=== PATIENT | female | born 1930 | race Caucasian/White ===

== ENCOUNTER 2017-07-10 04:01 | Emergency (ER) | payer MEDICARE ==
[~2017-07-10] VITALS: Ht 162.6 cm; Wt 55.0 kg
[~2017-07-10 04:01] MED LIST: AMLO5TAB PO; AMOX-580 PO; CALC500T11 PO; CYAN-19 PO; GABA-530 PO; IBUP-2264 PO; IPRA3AMP IH; LORA0.5T PO; MIRT15TA PO; NYST30CR2 TP; OLAN2.5T3 PO; PRED10TA PO
[2017-07-10 04:36] LABS: BASOPHILS % (AUTO) 0.3 % (0-1); EOSINOPHILS # (AUTO) 0.2 X10'3 (0-0.9); EOSINOPHILS % (AUTO) 2.9 % (0-6); HEMATOCRIT 38.7 % (35.0-45.0); HEMOGLOBIN 13.4 g/dl (12.0-16.0); LYMPHOCYTES # (AUTO) 0.8 X10'3 (1.1-4.8); LYMPHOCYTES % (AUTO) 12.5 % (21-51); MEAN CORPUSCULAR HGB CONC 34.7 % (33.0-36.5); MEAN CORPUSCULAR VOLUME 86.3 FL (78-98); MEAN PLATELET VOLUME 7.4 FL (7.4-10.4); MONOCYTES # (AUTO) 0.7 X10'3 (0-0.9); MONOCYTES % (AUTO) 11.5 % (2-12); NEUTROPHILS # (AUTO) 4.4 X10'3 (1.8-7.7); NEUTROPHILS % (AUTO) 72.8 % (42-75); PLATELET COUNT 258 X10'3 (140-440); RED BLOOD COUNT 4.49 X10'6 (4.20-5.60); RED CELL DISTRIBUTION WIDTH 14.4 % (11.5-14.5)
[2017-07-10 04:48] LABS: ALANINE AMINOTRANSFERASE 17 U/L (12-78); ALBUMIN 3.4 G/DL (3.4-5.0); ALKALINE PHOSPHATASE 97 IU/L (46-116); ANION GAP 3 (8-16); ASPARTATE AMINO TRANSFERASE 16 U/L (10-37); BILIRUBIN,TOTAL 0.4 MG/DL (0.1-1.0); BLOOD UREA NITROGEN 19 MG/DL (7-18); BUN/CREATININE RATIO 27.1 (6.6-38.0); CALCIUM 8.8 MG/DL (8.5-10.1); CHLORIDE 107 MMOL/L (99-107); GLUCOSE 97 MG/DL (70-104); MAGNESIUM 1.8 MG/DL (1.5-2.4); POTASSIUM 4.1 MMOL/L (3.5-5.1); SODIUM 142 MMOL/L (135-145); TOTAL CARBON DIOXIDE 31.6 MMOL/L (24-32); TOTAL PROTEIN 6.9 G/DL (6.4-8.2); eGFR 79 ML/MIN
[2017-07-10 05:53] VITALS: BP 125/60
== END 2017-07-10 06:23 | disposition home or self-care (01) ==
LOC: ER 04:02
DX: S09.90XA Unspecified injury of head, initial encounter (principal); F32.9 Major depressive disorder, single episode, unspecified; F03.90 Unspecified dementia, unspecified severity, without behavioral disturbance, psychotic disturbance, mood disturbance, and anxiety; F29 Unspecified psychosis not due to a substance or known physiological condition; I65.23 Occlusion and stenosis of bilateral carotid arteries; W18.30XA Fall on same level, unspecified, initial encounter; Y93.89 Activity, other specified; Y92.89 Other specified places as the place of occurrence of the external cause; Y99.8 Other external cause status
CPT/HCPCS: 36415; 70450; 71045; 80053; 83735; 85025; 99285

== ENCOUNTER 2017-10-25 09:44 | Inpatient (IN) | payer MEDICARE ==
[~2017-10-25] VITALS: Ht 165.1 cm; Wt 57.7 kg
[2017-10-25] MEDS ORDERED: normal saline 1000ML IV soln IVB ONE (10:50)
[2017-10-25 11:15] LABS: BASOPHILS % (AUTO) 0.1 % (0-1); EOSINOPHILS % (AUTO) 0 % (0-6); HEMATOCRIT 35.1 % (35.0-45.0); HEMOGLOBIN 11.9 g/dl (12.0-16.0); LYMPHOCYTES # (AUTO) 0.4 X10'3 (1.1-4.8); MEAN CORPUSCULAR HEMOGLOBIN 30.1 PG (27.0-31.0); MEAN CORPUSCULAR HGB CONC 33.8 % (33.0-36.5); MEAN PLATELET VOLUME 7.7 FL (7.4-10.4); MONOCYTES # (AUTO) 0.8 X10'3 (0-0.9); MONOCYTES % (AUTO) 12.5 % (2-12); NEUTROPHILS % (AUTO) 81.4 % (42-75); PLATELET COUNT 337 X10'3 (140-440); RED BLOOD COUNT 3.95 X10'6 (4.20-5.60); RED CELL DISTRIBUTION WIDTH 14.1 % (11.5-14.5); WHITE BLOOD COUNT 6.1 X10'3 (4.5-11.0)
[2017-10-25 11:25] LABS: PARTIAL THROMBOPLASTIN TIME 30 SECONDS (22-32); PROTHROMBIN TIME 10.2 SECONDS (9.0-12.0)
[2017-10-25 11:39] LABS: ALANINE AMINOTRANSFERASE 30 U/L (12-78); ALBUMIN 2.8 G/DL (3.4-5.0); ALBUMIN/GLOBULIN RATIO 0.5 (1.1-1.5); ALKALINE PHOSPHATASE 100 IU/L (46-116); ANION GAP 5 (8-16); ASPARTATE AMINO TRANSFERASE 28 U/L (10-37); BILIRUBIN,TOTAL 0.8 MG/DL (0.1-1.0); BLOOD UREA NITROGEN 26 MG/DL (7-18); BUN/CREATININE RATIO 25.5 (6.6-38.0); CALCIUM 8.9 MG/DL (8.5-10.1); CHLORIDE 101 MMOL/L (99-107); CREATININE 1.02 MG/DL (0.40-0.90); GLUCOSE 327 MG/DL (70-104); MAGNESIUM 2.5 MG/DL (1.5-2.4); PHOSPHORUS 3.6 MG/DL (2.3-4.5); POTASSIUM 4.2 MMOL/L (3.5-5.1); SODIUM 138 MMOL/L (135-145); TOTAL CARBON DIOXIDE 31.8 MMOL/L (24-32); TOTAL PROTEIN 8.1 G/DL (6.4-8.2); eGFR 51 ML/MIN
[2017-10-25] MEDS ORDERED: benzonatate 100mg capsule PO ONE (12:25)
[2017-10-25] MEDS ORDERED: albuterol 2.5 MG/3 ML nebule NEB ONE (12:25)
[2017-10-25] MEDS ORDERED: azithromycin/NS 500mg/250ml 250 ML IV ONE (12:30)
[2017-10-25] MEDS ORDERED: CefTRIAXone 2gm/D5W 50ml 50 ML IV ONE (12:30)
[2017-10-25] MEDS ORDERED: ondansetron/PF 4mg/2ml inj IV PRN (12:45)
[2017-10-25] MEDS ORDERED: mag hydrox/Alum hydrox/simeth 30ml oral suspension PO PRN (12:45)
[2017-10-25] MEDS ORDERED: magnesium hydroxide 30ml (MOM) UD suspension PO PRN (12:45)
[2017-10-25] MEDS ORDERED: acetaminophen 325mg tablet PO PRN (12:45)
[2017-10-25 13:51] LABS: CLARITY,URINE CLOUDY (Clear); COLOR,URINE YELLOW (Yellow); GLUCOSE, URINE >=1000 mg/dl (Neg); KETONES,URINE NEGATIVE (Neg); LEUKOCYTE ESTERASE ,URINE SMALL (Neg); NITRITES, URINE POSITIVE (Neg); OCCULT BLOOD,URINE SMALL (Neg); PH,URINE 5.5 (4.8-8.0); PROTEIN,URINE 30 mg/dl (Neg)
[2017-10-25 13:53] LABS: UA COLLECTION TYPE STRAIGHT CATH
[2017-10-25 13:58] LABS: SQUAMOUS EPITHELIAL CELL,UR MODERATE /LPF (FEW); TRANSITIONAL EPI CELLS,URINE MODERATE /HPF
[2017-10-25 14:00] LABS: BACTERIA,URINE 2+ /HPF (Neg); WBC CLUMPS,URINE MANY /HPF (NEGATIVE)
[2017-10-25 14:01] LABS: RBC,URINE 0-2 /HPF (0-2); WBC,URINE 50-100 /HPF (0-4)
[2017-10-25] MEDS ORDERED: MESSAGE TO PHARMACY PO ONE (17:20)
[2017-10-25] MEDS ORDERED: dextrose 50%-water 50ml dispensing syringe IV PRN ×2 (17:20)
[2017-10-25] MEDS ORDERED: glucagon, human recombinant 1mg kit SUBCUT PRN (17:20)
[2017-10-25] MEDS ORDERED: acetaminophen 650mg rectal suppository RC ONE (17:20)
[2017-10-25] MEDS ORDERED: enoxaparin 30mg/0.3ml syringe SUBCUT ONE (17:35)
[2017-10-25 17:42] LABS: HEMOGLOBIN A1C 6.2 % (4.5-6.2)
[2017-10-25 18:00] VITALS: BP 149/76
[2017-10-25 19:00] VITALS: BP 145/64
[2017-10-25] MEDS ORDERED: normal saline 1000ml 1,000 ML IV SCH (19:15)
[2017-10-25] MEDS ORDERED: acetaminophen 650mg rectal suppository RC PRN (19:15)
[2017-10-25] MEDS: insulin glargine (Lantus) pen - multi-dose SQ SCH (21:00)
[2017-10-25] MEDS: CefTRIAXone 2gm/D5W 50ml 50 ML IV SCH (21:04)
[2017-10-26] VITALS: BP 142/68
[2017-10-26 06:09] LABS: HEMOGLOBIN 10.8 g/dl (12.0-16.0); MEAN CORPUSCULAR HEMOGLOBIN 29.9 PG (27.0-31.0); MEAN CORPUSCULAR HGB CONC 33.7 % (33.0-36.5); MEAN CORPUSCULAR VOLUME 88.8 FL (78-98); MEAN PLATELET VOLUME 8.1 FL (7.4-10.4); PLATELET COUNT 348 X10'3 (140-440); RED BLOOD COUNT 3.61 X10'6 (4.20-5.60); RED CELL DISTRIBUTION WIDTH 14.1 % (11.5-14.5); WHITE BLOOD COUNT 8.1 X10'3 (4.5-11.0)
[2017-10-26 06:41] LABS: PLATELET ESTIMATE NORMAL; TOTAL CELLS COUNTED 100
[2017-10-26 07:00] VITALS: BP 121/52
[2017-10-26 07:11] LABS: ALANINE AMINOTRANSFERASE 30 U/L (12-78); ALBUMIN 2.3 G/DL (3.4-5.0); ALBUMIN/GLOBULIN RATIO 0.5 (1.1-1.5); ALKALINE PHOSPHATASE 93 IU/L (46-116); ANION GAP 10 (8-16); ASPARTATE AMINO TRANSFERASE 28 U/L (10-37); BILIRUBIN,TOTAL 0.5 MG/DL (0.1-1.0); BLOOD UREA NITROGEN 20 MG/DL (7-18); CALCIUM 8.7 MG/DL (8.5-10.1); CHLORIDE 107 MMOL/L (99-107); CREATININE 0.69 MG/DL (0.40-0.90); GLUCOSE 151 MG/DL (70-104); POTASSIUM 4.3 MMOL/L (3.5-5.1); SODIUM 147 MMOL/L (135-145); TOTAL CARBON DIOXIDE 30.3 MMOL/L (24-32); TOTAL PROTEIN 6.9 G/DL (6.4-8.2); eGFR 80 ML/MIN
[2017-10-26] MEDS: CefTRIAXone 2gm/D5W 50ml 50 ML IV SCH ×2 (07:29→19:42)
[2017-10-26] MEDS: azithromycin/NS 500mg/250ml 250 ML IV SCH (08:41)
[2017-10-26 12:32] VITALS: BP 143/54
[2017-10-26] MEDS: dextrose 5%-1/2 normal saline 1,000 ML IV SCH (12:38)
[2017-10-26] MEDS ORDERED: AMLO5TAB PO (13:04)
[2017-10-26] MEDS ORDERED: LORA0.5T PO (13:13)
[2017-10-26] MEDS ORDERED: PRED10TA PO (13:13)
[2017-10-26] MEDS ORDERED: OLAN2.5T3 PO (13:13)
[2017-10-26] MEDS ORDERED: GABA-530 PO ×2 (13:13→13:41)
[2017-10-26] MEDS ORDERED: CALC500T11 PO ×2 (13:13→13:48)
[2017-10-26] MEDS ORDERED: CYAN-19 PO (13:13)
[2017-10-26] MEDS ORDERED: MIRT15TA PO (13:13)
[2017-10-26] MEDS ORDERED: AMOX-580 PO (13:13)
[2017-10-26] MEDS ORDERED: NYST30CR2 TP (13:13)
[2017-10-26] MEDS ORDERED: IBUP-2264 PO (13:13)
[2017-10-26] MEDS ORDERED: IPRA3AMP IH ×2 (13:13→13:48)
[2017-10-26] MEDS ORDERED: MYC15CR TOP (13:41)
[2017-10-26] MEDS ORDERED: MULT1TAB74 PO (13:48)
[2017-10-26] MEDS ORDERED: IBUP-24 PO (13:48)
[2017-10-26] MEDS ORDERED: LORA-269 PO (13:48)
[2017-10-26] MEDS ORDERED: BENZ1LOZ PO (13:48)
[2017-10-26] MEDS ORDERED: PROP10DR5 OP (13:48)
[2017-10-26] MEDS ORDERED: ibuprofen 200mg tablet PO PRN (15:15)
[2017-10-26] MEDS ORDERED: LORazepam 1 MG tablet PO PRN (15:15)
[2017-10-26] MEDS ORDERED: polyvinyl alcohol ophthalmic drops 15ml bottle EACHEYE PRN (15:25)
[2017-10-26] MEDS ORDERED: benzocaine/menthol oral lozeng 1 EACH BOX MM PRN (15:25)
[2017-10-26] MEDS ORDERED: calcium carbonate 500mg chew tablet PO PRN (17:30)
[2017-10-26 19:00] VITALS: BP 150/80
[2017-10-26] MEDS: OLANZapine 2.5MG tablet PO SCH (19:43)
[2017-10-26] MEDS: insulin Lispro (HumaLOG) vial - multi-dose SQ SCH (19:51)
[2017-10-26] MEDS: gabapentin 100mg capsule PO SCH (21:00)
[2017-10-26] MEDS: insulin glargine (Lantus) pen - multi-dose SQ SCH (22:35)
[2017-10-27] VITALS: BP 142/71
[2017-10-27] MEDS: dextrose 5%-1/2 normal saline 1,000 ML IV SCH (05:19)
[2017-10-27 05:49] LABS: BASOPHILS % (AUTO) 0.1 % (0-1); EOSINOPHILS # (AUTO) 0.1 X10'3 (0-0.9); EOSINOPHILS % (AUTO) 1.1 % (0-6); HEMATOCRIT 34.7 % (35.0-45.0); HEMOGLOBIN 11.6 g/dl (12.0-16.0); LYMPHOCYTES # (AUTO) 0.4 X10'3 (1.1-4.8); LYMPHOCYTES % (AUTO) 3.4 % (21-51); MEAN CORPUSCULAR HEMOGLOBIN 29.6 PG (27.0-31.0); MEAN CORPUSCULAR HGB CONC 33.3 % (33.0-36.5); MEAN PLATELET VOLUME 7.7 FL (7.4-10.4); MONOCYTES # (AUTO) 1.1 X10'3 (0-0.9); MONOCYTES % (AUTO) 9.6 % (2-12); NEUTROPHILS # (AUTO) 10.2 X10'3 (1.8-7.7); NEUTROPHILS % (AUTO) 85.8 % (42-75); PLATELET COUNT 372 X10'3 (140-440); RED CELL DISTRIBUTION WIDTH 14.4 % (11.5-14.5); WHITE BLOOD COUNT 11.9 X10'3 (4.5-11.0)
[2017-10-27 06:14] LABS: ALANINE AMINOTRANSFERASE 49 U/L (12-78); ALBUMIN 2.2 G/DL (3.4-5.0); ALBUMIN/GLOBULIN RATIO 0.5 (1.1-1.5); ALKALINE PHOSPHATASE 90 IU/L (46-116); ANION GAP 5 (8-16); ASPARTATE AMINO TRANSFERASE 60 U/L (10-37); BILIRUBIN,TOTAL 0.3 MG/DL (0.1-1.0); BLOOD UREA NITROGEN 21 MG/DL (7-18); BUN/CREATININE RATIO 32.8 (6.6-38.0); CHLORIDE 110 MMOL/L (99-107); CREATININE 0.64 MG/DL (0.40-0.90); GLUCOSE 140 MG/DL (70-104); POTASSIUM 4.3 MMOL/L (3.5-5.1); SODIUM 151 MMOL/L (135-145); TOTAL CARBON DIOXIDE 36.1 MMOL/L (24-32); TOTAL PROTEIN 6.9 G/DL (6.4-8.2); eGFR 88 ML/MIN
[2017-10-27 08:00] VITALS: BP 164/83
[2017-10-27] MEDS ORDERED: multivitamins, therapeutics tablet PO SCH (08:00)
[2017-10-27] MEDS: CefTRIAXone 2gm/D5W 50ml 50 ML IV SCH (09:38)
[2017-10-27] MEDS: insulin Lispro (HumaLOG) vial - multi-dose SQ SCH ×2 (09:59→13:46)
[2017-10-27] MEDS: amLODIPine 5mg tablet PO SCH (10:01)
[2017-10-27] MEDS: mirtazapine 15mg tablet PO SCH (10:01)
[2017-10-27] MEDS: OLANZapine 2.5MG tablet PO SCH ×2 (10:02→20:00)
[2017-10-27] MEDS: ipratropium/albuterol 3ml nebule IH PRN ×3 (10:24→23:50)
[2017-10-27] MEDS: multivitamin oral liquid (Certavite) 5ml cup PO SCH (10:46)
[2017-10-27] MEDS: azithromycin/NS 500mg/250ml 250 ML IV SCH (10:48)
[2017-10-27 11:58] VITALS: BP 152/77
[2017-10-27] MEDS: dextrose 5%-water 1,000 ML IV SCH ×2 (12:35→22:34)
[2017-10-27] MEDS ORDERED: piperacillin/tazo 3.375gm/50ml 50 ML IV SCH (16:00)
[2017-10-27] MEDS: piperacillin/tazo 3.375gm/50ml 50 ML IV SCH ×2 (16:39→23:15)
[2017-10-27 19:00] VITALS: BP 125/72
[2017-10-27] MEDS: lactobacillus rhamnosus 10,000 MMU CELLS/CAPSULE PO SCH (20:00)
[2017-10-27] MEDS: gabapentin 100mg capsule PO SCH (21:00)
[2017-10-27] MEDS: insulin glargine (Lantus) pen - multi-dose SQ SCH (22:58)
[2017-10-27] MEDS: guaiFENesin 200 MG/10 ML oral syrup UD cup PO PRN (23:15)
[2017-10-28] VITALS: BP 134/56
[2017-10-28] MEDS ORDERED: acetylcysteine 200 MG/ml 4ml vial ONE (03:44)
[2017-10-28] MEDS: acetylcysteine 200 MG/ml 4ml vial INH SCH ×5 (03:55→20:40)
[2017-10-28] MEDS: ipratropium/albuterol 3ml nebule IH PRN ×4 (04:23→20:40)
[2017-10-28] MEDS: guaiFENesin 200 MG/10 ML oral syrup UD cup PO PRN (06:33)
[2017-10-28] MEDS ORDERED: bisacodyl 10mg suppository rectal RC PRN (07:00)
[2017-10-28 07:28] VITALS: BP 126/66
[2017-10-28 07:36] LABS: BASOPHILS % (AUTO) 0.3 % (0-1); EOSINOPHILS % (AUTO) 0.3 % (0-6); HEMATOCRIT 33.2 % (35.0-45.0); HEMOGLOBIN 11.1 g/dl (12.0-16.0); LYMPHOCYTES # (AUTO) 0.7 X10'3 (1.1-4.8); LYMPHOCYTES % (AUTO) 6.4 % (21-51); MEAN CORPUSCULAR HEMOGLOBIN 29.7 PG (27.0-31.0); MEAN CORPUSCULAR HGB CONC 33.5 % (33.0-36.5); MEAN CORPUSCULAR VOLUME 88.6 FL (78-98); MEAN PLATELET VOLUME 7.4 FL (7.4-10.4); MONOCYTES % (AUTO) 8.8 % (2-12); NEUTROPHILS # (AUTO) 9.6 X10'3 (1.8-7.7); NEUTROPHILS % (AUTO) 84.2 % (42-75); PLATELET COUNT 353 X10'3 (140-440); RED BLOOD COUNT 3.74 X10'6 (4.20-5.60); RED CELL DISTRIBUTION WIDTH 14.4 % (11.5-14.5); WHITE BLOOD COUNT 11.4 X10'3 (4.5-11.0)
[2017-10-28 07:54] LABS: ALANINE AMINOTRANSFERASE 54 U/L (12-78); ALBUMIN/GLOBULIN RATIO 0.5 (1.1-1.5); ALKALINE PHOSPHATASE 87 IU/L (46-116); ANION GAP 1 (8-16); ASPARTATE AMINO TRANSFERASE 49 U/L (10-37); BILIRUBIN,TOTAL 0.3 MG/DL (0.1-1.0); BLOOD UREA NITROGEN 15 MG/DL (7-18); BUN/CREATININE RATIO 25.9 (6.6-38.0); CALCIUM 8.7 MG/DL (8.5-10.1); CHLORIDE 106 MMOL/L (99-107); CREATININE 0.58 MG/DL (0.40-0.90); GLUCOSE 153 MG/DL (70-104); POTASSIUM 3.9 MMOL/L (3.5-5.1); SODIUM 146 MMOL/L (135-145); TOTAL CARBON DIOXIDE 39.4 MMOL/L (24-32); TOTAL PROTEIN 6.3 G/DL (6.4-8.2); eGFR > 90 ML/MIN
[2017-10-28] MEDS: piperacillin/tazo 3.375gm/50ml 50 ML IV SCH ×3 (08:00→23:37)
[2017-10-28] MEDS: OLANZapine 2.5MG tablet PO SCH ×2 (08:00→20:00)
[2017-10-28] MEDS: multivitamin oral liquid (Certavite) 5ml cup PO SCH (08:00)
[2017-10-28] MEDS: amLODIPine 5mg tablet PO SCH (08:00)
[2017-10-28] MEDS: lactobacillus rhamnosus 10,000 MMU CELLS/CAPSULE PO SCH ×2 (08:00→20:00)
[2017-10-28] MEDS: mirtazapine 15mg tablet PO SCH (08:00)
[2017-10-28] MEDS: potassium CL 20mEq in D5-1/2NS 1,000 ML IV SCH (12:12)
[2017-10-28] MEDS: Protein Shake (high protein) 240ml (8oz) cup PO SCH ×2 (13:00→18:00)
[2017-10-28 15:13] VITALS: BP 130/64
[2017-10-28] MEDS ORDERED: furosemide 20 MG/2 ML vial IV ONE (19:00)
[2017-10-28 20:00] VITALS: BP 185/75
[2017-10-28] MEDS: gabapentin 100mg capsule PO SCH (20:24)
[2017-10-28] MEDS: insulin glargine (Lantus) pen - multi-dose SQ SCH (22:30)
[2017-10-29] VITALS: BP 149/71
[2017-10-29] MEDS: acetylcysteine 200 MG/ml 4ml vial INH SCH ×4 (02:31→20:08)
[2017-10-29] MEDS: ipratropium/albuterol 3ml nebule IH PRN ×4 (02:31→20:08)
[2017-10-29 05:41] LABS: BASOPHILS % (AUTO) 0.1 % (0-1); EOSINOPHILS # (AUTO) 0.1 X10'3 (0-0.9); EOSINOPHILS % (AUTO) 0.8 % (0-6); HEMATOCRIT 35.4 % (35.0-45.0); HEMOGLOBIN 12.1 g/dl (12.0-16.0); LYMPHOCYTES # (AUTO) 0.9 X10'3 (1.1-4.8); MEAN CORPUSCULAR HEMOGLOBIN 30.2 PG (27.0-31.0); MEAN CORPUSCULAR HGB CONC 34.3 % (33.0-36.5); MEAN PLATELET VOLUME 7.3 FL (7.4-10.4); MONOCYTES % (AUTO) 7.9 % (2-12); NEUTROPHILS % (AUTO) 84.2 % (42-75); PLATELET COUNT 381 X10'3 (140-440); RED BLOOD COUNT 4.02 X10'6 (4.20-5.60); RED CELL DISTRIBUTION WIDTH 14.3 % (11.5-14.5); WHITE BLOOD COUNT 13.1 X10'3 (4.5-11.0)
[2017-10-29 05:58] LABS: ALANINE AMINOTRANSFERASE 51 U/L (12-78); ALBUMIN/GLOBULIN RATIO 0.5 (1.1-1.5); ALKALINE PHOSPHATASE 85 IU/L (46-116); ANION GAP 1 (8-16); ASPARTATE AMINO TRANSFERASE 40 U/L (10-37); BILIRUBIN,TOTAL 0.4 MG/DL (0.1-1.0); BLOOD UREA NITROGEN 16 MG/DL (7-18); BUN/CREATININE RATIO 26.7 (6.6-38.0); CALCIUM 8.5 MG/DL (8.5-10.1); CHLORIDE 103 MMOL/L (99-107); GLUCOSE 109 MG/DL (70-104); POTASSIUM 3.6 MMOL/L (3.5-5.1); SODIUM 145 MMOL/L (135-145); TOTAL PROTEIN 6.4 G/DL (6.4-8.2); eGFR > 90 ML/MIN
[2017-10-29 07:39] VITALS: BP 120/78
[2017-10-29] MEDS: OLANZapine 2.5MG tablet PO SCH ×2 (08:00→20:00)
[2017-10-29] MEDS: multivitamin oral liquid (Certavite) 5ml cup PO SCH (08:00)
[2017-10-29] MEDS: mirtazapine 15mg tablet PO SCH (08:00)
[2017-10-29] MEDS: Protein Shake (high protein) 240ml (8oz) cup PO SCH ×3 (08:00→19:49)
[2017-10-29] MEDS: lactobacillus rhamnosus 10,000 MMU CELLS/CAPSULE PO SCH ×2 (08:00→20:00)
[2017-10-29] MEDS: amLODIPine 5mg tablet PO SCH (08:00)
[2017-10-29] MEDS: piperacillin/tazo 3.375gm/50ml 50 ML IV SCH ×2 (08:02→16:01)
[2017-10-29 09:21] LABS: ABG BASE EXCESS 15.3 mmol/L (-2.0-3.0); ABG HCO3 40.1 mmol/L (22.0-26.0); ABG OXYGEN SATURATION 94.3 % (95-98); ABG PCO2 (T) 49.6 mmHg (32.0-45.0); ABG PH (T) 7.526 (7.350-7.450); ABG PO2 (T) 61.9 mmHg (83-108); ALLEN'S TEST Positive; FCOHb 0.3 % (0.5-1.5); FMetHb 0.1 % (0.3-1.12); FO2Hb 93.9 % (94-100); TOTAL HEMOGLOBIN 12.4 G/dl (12.0-16.0)
[2017-10-29] MEDS: potassium CL 20mEq in D5-1/2NS 1,000 ML IV SCH (09:34)
[2017-10-29] MEDS: acetaZOLAMIDE IV 500mg inj IV SCH ×2 (10:35→21:02)
[2017-10-29 10:46] VITALS: BP 151/57
[2017-10-29] MEDS: VANCOMYCIN 750MG IV in NS 250 ML IV SCH ×2 (13:08→21:09)
[2017-10-29 20:00] VITALS: BP 135/64
[2017-10-29] MEDS: gabapentin 100mg capsule PO SCH (21:00)
[2017-10-29] MEDS: insulin glargine (Lantus) pen - multi-dose SQ SCH (22:23)
[2017-10-30] VITALS: BP 143/65
[2017-10-30] MEDS: piperacillin/tazo 3.375gm/50ml 50 ML IV SCH ×2 (00:09→08:32)
[2017-10-30] MEDS: potassium CL 20mEq in D5-1/2NS 1,000 ML IV SCH (03:30)
[2017-10-30] MEDS: acetylcysteine 200 MG/ml 4ml vial INH SCH ×2 (03:31→08:10)
[2017-10-30] MEDS: ipratropium/albuterol 3ml nebule IH PRN ×2 (03:32→08:08)
[2017-10-30 06:25] LABS: BASOPHILS % (AUTO) 0.1 % (0-1); EOSINOPHILS # (AUTO) 0.3 X10'3 (0-0.9); EOSINOPHILS % (AUTO) 2.8 % (0-6); HEMATOCRIT 35.6 % (35.0-45.0); HEMOGLOBIN 12.1 g/dl (12.0-16.0); LYMPHOCYTES # (AUTO) 0.7 X10'3 (1.1-4.8); LYMPHOCYTES % (AUTO) 5.9 % (21-51); MEAN CORPUSCULAR HEMOGLOBIN 29.8 PG (27.0-31.0); MEAN CORPUSCULAR HGB CONC 34.1 % (33.0-36.5); MEAN CORPUSCULAR VOLUME 87.4 FL (78-98); MEAN PLATELET VOLUME 7.7 FL (7.4-10.4); MONOCYTES # (AUTO) 0.7 X10'3 (0-0.9); MONOCYTES % (AUTO) 5.9 % (2-12); NEUTROPHILS # (AUTO) 10.4 X10'3 (1.8-7.7); NEUTROPHILS % (AUTO) 85.3 % (42-75); PLATELET COUNT 367 X10'3 (140-440); RED BLOOD COUNT 4.07 X10'6 (4.20-5.60); RED CELL DISTRIBUTION WIDTH 13.8 % (11.5-14.5); WHITE BLOOD COUNT 12.2 X10'3 (4.5-11.0)
[2017-10-30 06:40] LABS: ALANINE AMINOTRANSFERASE 43 U/L (12-78); ALBUMIN 1.9 G/DL (3.4-5.0); ALBUMIN/GLOBULIN RATIO 0.4 (1.1-1.5); ALKALINE PHOSPHATASE 75 IU/L (46-116); ANION GAP 9 (8-16); ASPARTATE AMINO TRANSFERASE 37 U/L (10-37); BILIRUBIN,TOTAL 0.4 MG/DL (0.1-1.0); BLOOD UREA NITROGEN 15 MG/DL (7-18); BUN/CREATININE RATIO 23.8 (6.6-38.0); CALCIUM 8.7 MG/DL (8.5-10.1); CHLORIDE 108 MMOL/L (99-107); CREATININE 0.63 MG/DL (0.40-0.90); GLUCOSE 130 MG/DL (70-104); POTASSIUM 3.7 MMOL/L (3.5-5.1); SODIUM 144 MMOL/L (135-145); TOTAL CARBON DIOXIDE 27.5 MMOL/L (24-32); TOTAL PROTEIN 6.3 G/DL (6.4-8.2); eGFR 89 ML/MIN
[2017-10-30] MEDS: multivitamin oral liquid (Certavite) 5ml cup PO SCH (08:00)
[2017-10-30] MEDS: Protein Shake (high protein) 240ml (8oz) cup PO SCH ×2 (08:00→13:00)
[2017-10-30] MEDS: mirtazapine 15mg tablet PO SCH (08:00)
[2017-10-30] MEDS: lactobacillus rhamnosus 10,000 MMU CELLS/CAPSULE PO SCH (08:00)
[2017-10-30] MEDS: amLODIPine 5mg tablet PO SCH (08:00)
[2017-10-30] MEDS: OLANZapine 2.5MG tablet PO SCH (08:00)
[2017-10-30] MEDS: acetaZOLAMIDE IV 500mg inj IV SCH (08:32)
[2017-10-30] MEDS: VANCOMYCIN 750MG IV in NS 250 ML IV SCH (08:33)
[2017-10-30] MEDS ORDERED: iohexol 350 MG/ML 50ML vial IV ONE (08:34)
[2017-10-30 11:08] VITALS: BP 130/53
[2017-10-30] MEDS ORDERED: LORazepam 2 mg/ml vial IV PRN (11:15)
[2017-10-30] MEDS ORDERED: morphine 10mg/0.5ml (conc. morphine) oral syringe PO PRN (11:15)
[2017-10-30] MEDS: morphine 10mg/ml inj. IV PRN ×2 (11:52→14:21)
[2017-10-30] MEDS ORDERED: scopolamine 1.5mg patch.TD72 TD SCH (14:10)
[2017-10-30 19:00] VITALS: BP 118/40
[2017-10-31] MEDS ORDERED: MESSAGE TO NURSING IV ONE (00:30)
[2017-10-31] MEDS: morphine 10mg/ml inj. IV PRN ×3 (00:34→09:10)
[2017-10-31 07:02] VITALS: BP 114/41
== END 2017-10-31 12:43 | disposition expired | DRG 871 ==
LOC: ER 09:44 → ED HOLD 12:42 → EDBEDREQTM 14:54 → SUR 3N 17:46
PROVIDERS: ADMIT Internal Medicine; ATTEND Family Medicine
DX: A41.9 Sepsis, unspecified organism (principal); J96.20 Acute and chronic respiratory failure, unspecified whether with hypoxia or hypercapnia; E43 Unspecified severe protein-calorie malnutrition; E87.0 Hyperosmolality and hypernatremia; G93.40 Encephalopathy, unspecified; J18.9 Pneumonia, unspecified organism; E11.65 Type 2 diabetes mellitus with hyperglycemia; G30.9 Alzheimer's disease, unspecified; N39.0 Urinary tract infection, site not specified; F02.80 Dementia in other diseases classified elsewhere, unspecified severity, without behavioral disturbance, psychotic disturbance, mood disturbance, and anxiety; Z66 Do not resuscitate; Z51.5 Encounter for palliative care; B96.20 Unspecified Escherichia coli [E. coli] as the cause of diseases classified elsewhere; R65.20 Severe sepsis without septic shock; F32.9 Major depressive disorder, single episode, unspecified; I10 Essential (primary) hypertension; F29 Unspecified psychosis not due to a substance or known physiological condition; Z88.8 Allergy status to other drugs, medicaments and biological substances; Z79.899 Other long term (current) drug therapy; Z79.01 Long term (current) use of anticoagulants; Z79.4 Long term (current) use of insulin; Z68.21 Body mass index [BMI] 21.0-21.9, adult
CPT/HCPCS: 36415; 36600; 71045; 80053; 81001; 82803; 82948; 83036; 83605; 83735; 83880; 84100; 84484; 85018; 85025; 85610; 85730; 87040; 87070; 87077; 87088; 87186; 92616; 93005; 93306; 94640; 94760; 96360; 99285; A4315; A6196; A6212; A6213; A6449; J0456; J0696; J1120; J1650; J1815; J1940; J2270; J2543; J3370; J7030; J7070; Q9967